=== PATIENT | female | born 1995 | race Caucasian/White ===

== ENCOUNTER 2020-05-29 13:05 | Emergency (ER) | payer OTHER ==
[~2020-05-29] VITALS: Ht 160 cm; Wt 59.0 kg
[~2020-05-29 13:05] MED LIST: NOHOMEMEDICATIONS
[2020-05-29] MEDS ORDERED: FLAGYL500 M1 PO (13:14)
[2020-05-29 13:23] LABS: URINE BILIRUBIN NEGATIVE (Negative); URINE BLOOD 3+ (Negative); URINE CLARITY SL CLOUDY; URINE COLOR YELLOW; URINE GLUCOSE-RANDOM NEGATIVE (Negative); URINE KETONES NEGATIVE (Negative); URINE LEUKOCYTES-REFLEX 1+ (Negative); URINE NITRITE-REFLEX POSITIVE (Negative); URINE PROTEIN 2+ (Negative); URINE SPECIFIC GRAVITY >= 1.030 (1.005-1.030); URINE UROBILINOGEN 0.2 E.U./dl (0.2-1.0)
[2020-05-29 13:30] LABS: SQUAMOUS >10 Many /LPF (0-3)
[2020-05-29] MEDS ORDERED: BACTRIM DS TAB1 EACH PO (13:31)
[2020-05-29] MEDS ORDERED: DIFLUCAN150 M1 PO (13:34)
[2020-05-29 13:35] LABS: BACTERIA-REFLEX 1-9 Few /HPF (None Seen); CASTS None Seen /LPF (None Seen); CRYSTALS None Seen /LPF (None Seen); URINE RBC 0-2 Rare /HPF (0-2); URINE WBC-REFLEX >25 Many /HPF (0-5); WBC CLUMPS Moderate (None Seen)
[2020-05-29 13:57] VITALS: BP 105/74
== END 2020-05-29 13:45 | disposition home or self-care (01) ==
LOC: M.ERS 13:05
PROVIDERS: Nurse Practitioner Psychiatric/Mental Health
DX: N39.0 Urinary tract infection, site not specified (principal); L29.2 Pruritus vulvae

== ENCOUNTER 2020-06-18 06:07 | Emergency (ER) | payer OTHER ==
[~2020-06-18] VITALS: Ht 160 cm; Wt 59.0 kg
[~2020-06-18 06:07] MED LIST changes: +BACTRIM DS TAB1 EACH PO; +DIFLUCAN150 M1 PO; +FLAGYL500 M1 PO
[2020-06-18] MEDS ORDERED: BUPROPION XL300 MG PO (06:18)
[2020-06-18 06:43] LABS: URINE BILIRUBIN NEGATIVE (Negative); URINE BLOOD 3+ (Negative); URINE CLARITY CLOUDY; URINE COLOR YELLOW; URINE GLUCOSE-RANDOM NEGATIVE (Negative); URINE KETONES NEGATIVE (Negative); URINE LEUKOCYTES 2+ (Negative); URINE NITRITE NEGATIVE (Negative); URINE PROTEIN 2+ (Negative); URINE SPECIFIC GRAVITY 1.025 (1.005-1.030); URINE UROBILINOGEN 0.2 E.U./dl (0.2-1.0)
[2020-06-18 06:59] LABS: SQUAMOUS 0-3 Few /LPF (0-3)
[2020-06-18 07:01] LABS: BACTERIA None Seen /HPF (None Seen); URINE RBC >20 Many /HPF (0-2)
[2020-06-18 07:02] LABS: CASTS None Seen /LPF (None Seen); CRYSTALS None Seen /LPF (None Seen); MUCUS None Seen strn/LPF (None Seen)
[2020-06-18] MEDS ORDERED: AUGMENTIN 875-1 EACH PO (07:30)
[2020-06-18] MEDS ORDERED: KEFLEX500 M1 PO (07:43)
[2020-06-18] MEDS ORDERED: PYRIDIUM200 MG PO (07:43)
[2020-06-18 08:15] VITALS: BP 100/41
== END 2020-06-18 08:16 | disposition home or self-care (01) ==
LOC: M.ERS 06:07
PROVIDERS: Personal Emergency Response Attendant
DX: N39.0 Urinary tract infection, site not specified (principal)

== ENCOUNTER 2020-07-11 10:25 | Emergency (ER) | payer OTHER ==
[~2020-07-11] VITALS: Ht 160 cm; Wt 59.0 kg
[~2020-07-11 10:25] MED LIST changes: +AUGMENTIN 875-1 EACH PO; +BUPROPION XL300 MG PO; +KEFLEX500 M1 PO; +PYRIDIUM200 MG PO
[2020-07-11 10:50] LABS: URINE BILIRUBIN NEGATIVE (Negative); URINE BLOOD NEGATIVE (Negative); URINE CLARITY CLEAR; URINE COLOR YELLOW; URINE GLUCOSE-RANDOM NEGATIVE (Negative); URINE KETONES NEGATIVE (Negative); URINE LEUKOCYTES-REFLEX TRACE (Negative); URINE NITRITE-REFLEX NEGATIVE (Negative); URINE PROTEIN NEGATIVE (Negative); URINE UROBILINOGEN 0.2 E.U./dl (0.2-1.0)
[2020-07-11 10:52] LABS: BACTERIA-REFLEX 1-9 Few /HPF (None Seen); CASTS None Seen /LPF (None Seen); CRYSTALS None Seen /LPF (None Seen); MUCUS None Seen strn/LPF (None Seen); SQUAMOUS 4-10 Moderate /LPF (0-3); URINE RBC 0-2 Rare /HPF (0-2); URINE WBC-REFLEX 0-5 Rare /HPF (0-5)
[2020-07-11 12:21] LABS: ABSOLUTE LYMPHOCYTES 1.2 thou/uL (0.8-5.3); ABSOLUTE MONOCYTES 0.5 thou/uL (0.0-1.2); BASOPHILS 0.7 %; EOSINOPHILS 0.6 %; HEMATOCRIT 38.3 % (37.0-47.0); HEMOGLOBIN 12.7 gm/dL (12.0-15.0); LYMPHOCYTES 32.1 %; MCH 29.9 pg (26.0-34.0); MCHC 33.2 g/dL (28.0-37.0); MONOCYTES 12.3 %; MPV 8.8 fl. (7.2-11.1); NUCLEATED RBCS 0 /100WBC; PLATELET COUNT* 187 thou/uL (150-400); POLYS 54.3 %; RBC 4.26 mil/uL (4.20-5.00); RDW-CV 12.8 % (10.5-14.5); WBC 3.7 thou/uL (4.0-11.0)
[2020-07-11 12:22] LABS: CALCIUM 9.1 mg/dL (8.5-10.1); CREATININE 0.7 mg/dL (0.6-1.3); POTASSIUM 4.2 mmol/L (3.5-5.1)
[2020-07-11] MEDS ORDERED: IBUPROFEN 800800 M1 PO (13:13)
[2020-07-11] MEDS ORDERED: CEFDINIR300 MG PO (13:13)
[2020-07-11] MEDS ORDERED: ONDANSETRON HCL4 M2 PO (13:13)
[2020-07-11] MEDS ORDERED: ZANAFLEX4 MG PO (13:13)
[2020-07-11 13:26] VITALS: BP 103/65
== END 2020-07-11 13:26 | disposition home or self-care (01) ==
LOC: M.ERS 10:25
PROVIDERS: Nurse Practitioner Family
DX: U07.1 COVID-19 (principal); N39.0 Urinary tract infection, site not specified

== ENCOUNTER 2021-05-11 23:01 | Emergency (ER) | payer OTHER ==
[~2021-05-11] VITALS: Ht 160 cm; Wt 57.6 kg
[~2021-05-11 23:01] MED LIST changes: +CEFDINIR300 MG PO; +IBUPROFEN 800800 M1 PO; +ONDANSETRON HCL4 M2 PO; +ZANAFLEX4 MG PO
[2021-05-11] MEDS ORDERED: TRAZODONE HCL50 MG PO (23:35)
[2021-05-11] MEDS ORDERED: WELLBUTRIN SR150 M1 PO (23:35)
[2021-05-11] MEDS ORDERED: PROZAC20 MG PO (23:35)
[2021-05-12] MEDS ORDERED: HYDROCODON-ACE1 EAC8 PO (00:55)
[2021-05-12] MEDS ORDERED: FLEXERIL PO (00:55)
[2021-05-12 01:10] VITALS: BP 118/68
== END 2021-05-12 01:10 | disposition home or self-care (01) ==
LOC: M.ERS 23:01
DX: S70.01XA Contusion of right hip, initial encounter (principal); S20.211A Contusion of right front wall of thorax, initial encounter; R51.9 Headache, unspecified; F41.9 Anxiety disorder, unspecified; F32.9 Major depressive disorder, single episode, unspecified; Z79.899 Other long term (current) drug therapy; V49.88XA Car occupant (driver) (passenger) injured in other specified transport accidents, initial encounter; Y93.89 Activity, other specified; Y92.488 Other paved roadways as the place of occurrence of the external cause; Y99.8 Other external cause status